=== PATIENT | male | born 1960 | race Two or more races ===

== ENCOUNTER 2019-08-04 12:10 | Emergency (ER) | payer MEDICARE, OTHER ==
[~2019-08-04] VITALS: Ht 185.4 cm; Wt 93.4 kg
--- NOTE | 2019-08-04 12:36 | Emergency Room Report ---
History of Present Illness General Chief Complaint: Upper Extremity Injury Source: Patient Present Illness HPI 59-year-old male with no significant past medical history here complaining of left shoulder pain post fracture and is requesting a referral to referral specialist. Patient reports that he was diagnosed with left shoulder fracture 1 month ago, given prescription for Bow, and asked to follow-up with referral specialist. Patient followed up with 2 different referral specialist and reports that did not like them. Has been getting refills of Bow from the referral specialist that he has seen only once. Reports that he wants more Bow, injectable pain medication, and a new referral to referral specialist. Does not want any further imaging. Patient is already wearing a sling and splint in the left shoulder. Reports that proper imaging was done upon his diagnosis. Denies any fall or injury. Denies chest pain, shortness of breath, palpitation, and other associated symptoms. Allergies: Coded Allergies: No Known Allergies (Unverified , 08/04/19) Patient History Past Medical History: see triage record Past Surgical History: unable to obtain Pertinent Family History: none Immunizations: UTD Reviewed Nursing Documentation: PMH: Agreed; PSxH: Agreed Nursing Documentation-PMH Past Medical History: No History, Except For Review of Systems All Other Systems: negative except mentioned in HPI Physical Exam Vital Signs Date Time Temp Pulse Resp B/P (MAP) Pulse Ox O2 Delivery O2 Flow Rate FiO2 08/04/19 12:17 98.1 76 17 132/82 (99) 99 Room Air Sp02 EP Interpretation: reviewed, normal General Appearance: no apparent distress, alert, GCS 15, non-toxic Head: normocephalic, atraumatic Eyes: bilateral eye normal inspection, bilateral eye PERRL ENT: hearing grossly normal, normal pharynx, no angioedema, normal voice Neck: full range of motion, supple/symm/no masses Respiratory: chest non-tender, lungs clear, normal breath sounds, no rhonchi, no respiratory distress, no retraction, no wheezing, speaking full sentences Cardiovascular #1: regular rate, rhythm, no edema, no murmur, normal capillary refill Cardiovascular #2: 2+ radial (R), 2+ radial (L) Gastrointestinal: normal bowel sounds, non tender, soft, non-distended, no guarding, no rebound Rectal: deferred Genitourinary: no CVA tenderness Musculoskeletal: back normal, other - Left shoulder placed in a sling Neurologic: alert, motor strength/tone normal, oriented x3, sensory intact, responsive, speech normal Psychiatric: judgement/insight normal, memory normal, mood/affect normal, no suicidal/homicidal ideation Skin: no rash Lymphatic: no adenopathy Medical Decision Making PA Attestation All diagnoses and treatment plans were reviewed and discussed with my supervising physician Dr. Leija Diagnostic Impression: Primary Impression: Shoulder fracture, left ER Course 59-year-old male with no significant past medical history here complaining of left shoulder pain post fracture and is requesting a referral to referral specialist. Patient reports that he was diagnosed with left shoulder fracture 1 month ago, given prescription for Bow, and asked to follow-up with referral specialist. Patient followed up with 2 different referral specialist and reports that did not like them. Has been getting refills of Bow from the referral specialist that he has seen only once. Reports that he wants more Bow, injectable pain medication, and a new referral to referral specialist. Does not want any further imaging. Patient is already wearing a sling and splint in the left shoulder. Reports that proper imaging was done upon his diagnosis. Denies any fall or injury. Denies chest pain, shortness of breath, palpitation, and other associated symptoms. Ddx considered but are not limited to : Shoulder strain versus fracture versus sprain Vital signs: are WNL, pt. is afebrile H&PE are most consistent with: Third encounter for left shoulder fracture ORDERS: No x-ray necessary at this time, ibuprofen, Tylenol ED INTERVENTIONS: None patient refused Toradol injection DISCHARGE: At this time pt. is stable for d/c to home. Will provide printed patient care instructions, and any necessary prescriptions. Care plan and follow up instructions have been discussed with the patient prior to discharge. Patient to follow-up with referral specialist at this time cannot write for any more narcotics also patient is to have establish referral specialist patient also follow-up with primary care for physical therapy Last Vital Signs Date Time Temp Pulse Resp B/P (MAP) Pulse Ox O2 Delivery O2 Flow Rate FiO2 08/04/19 12:17 98.1 76 17 132/82 (99) 99 Room Air Disposition: HOME, SELF-CARE Condition: Stable Scripts Acetaminophen* (TYLENOL EXTRA STRENGTH*) 500 Mg Tablet 1000 MG ORAL Q6H, #30 TAB Prov: Kenya Barahona 08/04/19 Ibuprofen (Ibu) 800 Mg Tablet 800 MG PO TID, #30 TAB Prov: Kenya Barahona 08/04/19 Patient Instructions: Shoulder Fracture Kenya Barahona Aug 04, 2019 12:36
[2019-08-04 12:37] VITALS: BP 132/82
--- NOTE | 2019-08-04 12:37 | NUR ---
ED Nurse Note:pt. came for recheck of his left shoukder injury from 07/12 due to not making ortho appointment
[2019-08-04] MEDS ORDERED: IBU800 MG PO (12:38)
[2019-08-04] MEDS ORDERED: ACETAMINOPHEN500 MG ORAL (12:38)
[2019-08-04 12:44] VITALS: BP 132/82
--- NOTE | 2019-08-04 12:45 | NUR ---
ER DISCHARGE NOTE: Patient is cleared to be discharged per ERMD, pt is aox4, on room air, with stable vital signs. pt was given dc and prescription instructions, pt was able to verbalize understanding, pt is able to ambulate with steady gait. pt took all belongings.
== END 2019-08-04 12:45 | disposition home or self-care (01) ==
LOC: EMR 12:45
DX: S42.92XA Fracture of left shoulder girdle, part unspecified, initial encounter for closed fracture (principal); X58.XXXA Exposure to other specified factors, initial encounter; Y92.9 Unspecified place or not applicable
CPT/HCPCS: 99282